=== PATIENT | male | born 1975 | race Caucasian/White ===

== ENCOUNTER 2022-08-15 14:18 | Emergency (ER) | payer OTHER ==
[~2022-08-15] VITALS: Ht 172.7 cm; Wt 81.8 kg
[2022-08-15 14:18] VITALS: BP 108/74
[2022-08-15 14:53] LABS: Basophils # (auto) 0 10 ^3/uL (0-0.2); Basophils % (auto) 0.1 % (0.0-2.0); Eosinophils # (auto) 0.1 10 ^3/uL (0-0.8); Eosinophils % (auto) 0.6 % (0.0-7.0); Hematocrit 45.6 % (41.0-53.0); Hemoglobin 15.3 g/dL (13.5-17.5); Lymphocytes # (auto) 0.5 10 ^3/uL (0.4-5.4); Lymphocytes % (auto) 3.1 % (10.0-50.0); Mean Corpuscular Hemoglobin 29.3 pg (28.0-32.0); Mean Corpuscular Hgb Conc. 33.5 g/dL (32.0-36.0); Mean Corpuscular Volume 87.4 fL (80.0-100.0); Monocytes # (auto) 0.9 10 ^3/uL (0-1.3); Monocytes % (auto) 5.7 % (0.0-12.0); Neutrophils # (auto) 13.8 10 ^3/uL (1.6-8.6); Neutrophils % (auto) 90.5 % (37.0-80.0); Nucleated Red Blood Cells % 0.1 %; Red Blood Cells 5.21 10^6/uL (4.5-5.90); Red Cell Distribution Width 13.3 % (11.8-14.3); White Blood Cell 15.3 10^3/uL (4.4-10.8)
[2022-08-15] MEDS ORDERED: HYDROmorphone HCL 2 MG/ML VL/or syr IM ONE (15:00)
[2022-08-15] MEDS ORDERED: ONDANSETRON ODT 4 MG TAB PO ONE (15:00)
[2022-08-15 15:07] LABS: Calcium 9.1 mg/dL (8.5-10.1); Magnesium 2.4 mg/dL (1.6-2.6); Potassium 4.1 mmol/L (3.5-5.1)
[2022-08-15 15:09] LABS: INR 0.92 (0.9-1.15); Partial Thromboplastin Time < 20.0 sec (24.6-33.4)
[2022-08-15 15:11] LABS: BUN/Creatinine Ratio 19.1 (10.0-20.0); Bilirubin, Total 1.1 mg/dL (0.2-1.0); Total Protein 7.7 g/dL (6.4-8.2)
== END 2022-08-15 14:40 | disposition left against medical advice (07) ==
LOC: ER 14:18 → EDBD 14:18 → ER 14:40
DX: R10.13 Epigastric pain (principal); F41.9 Anxiety disorder, unspecified
CPT/HCPCS: 36415; 71045; 80053; 83735; 83880; 84484; 85025; 85610; 85730; 93005